=== PATIENT | male | born 1975 | race Caucasian/White ===

== ENCOUNTER 2020-02-14 12:22 | Emergency (ER) | payer BC, SELFPAY ==
[2020-02-14 12:29] VITALS: BP 127/88; PULSE 76; RESP 20; TEMP 36.3; O2SAT 100
--- NOTE | 2020-02-14 12:32 | ED.SKABFB ---
HPI - Skin/Abscess/Foreign Bdy General Chief complaint: Skin/Abscess/Foreign Body Stated complaint: Infected finger Time Seen by Provider: 02/14/20 12:37 Source: patient Mode of arrival: ambulatory Limitations: no limitations History of Present Illness HPI narrative: Fidencio Prakash is a 44 yo male with a PMH of GERD, depression, who comes to [facility] with a cellulitic-looking lesion to that started on Tuesday the third finger . Currently warm to touch; in general hands are eczemic Related Data Home Medications Medication Instructions Recorded Confirmed famotidine [Pepcid] 20 mg PO DAILY 02/14/20 02/14/20 levomilnacipran [Fetzima] 40 mg PO DAILY 02/14/20 02/14/20 loratadine [Claritin] 10 mg PO DAILY 02/14/20 02/14/20 Allergies Allergy/AdvReac Type Severity Reaction Status Date / Time erythromycin base Allergy Unknown unknown Verified 02/14/20 12:38 Review of Systems Review of Systems: Narrative: CONSTITUTIONAL: Denies fever, chills, sweats. EYES: Denies visual changes, redness, discharge. ENT: Denies rhinorrhea, congestion, sore throat, otalgia. CARDIOVASCULAR: Denies chest pain, palpitations, edema. RESPIRATORY: Denies dyspnea, wheezing, cough GASTROINTESTINAL: Denies abdominal pain, nausea, vomiting, diarrhea. GENITOURINARY: Denies dysuria, hematuria, abnormal discharge SKIN: Denies rash or itching. Reddened warm area to the third finger right hand NEUROLOGIC: Denies numbness, or focal weakness. PSYCHIATRIC: Denies anxiety or depression. Does not feel that it did have a fever PMFSH Past Medical History Medical History Anxiety disorder, unspecified (~2009) Cold virus Dysthymic disorder (~2009) Encounter for other general examination Encounter for screening for lipoid disorders Eustachian tube dysfunction Family history of colon cancer in father Gastroenteritis Generalized anxiety disorder Muscle strain Muscle strain of upper back Nicotine dependence with current use SBD (seborrheic dermatitis) Screening for prostate cancer Seasonal allergies Slow transit constipation Family History Family History Grandparent Malignant neoplasm of prostate Diabetes mellitus Mother Family history of diabetes mellitus in first degree relative Diabetes mellitus Father Carcinoma of colon Social History Social History Social History: Pt is a current smoker with about one pack a day. States he started when he was 22. 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 There is no relevant family history pertinent to the presenting complaint. Exam Narrative: Exam Narrative: GENERAL: This is a well-nourished, well-developed patient, in mild distress. HEAD: normocephalic, atraumatic. EYES: PERRL. Sclera clear/white. Vision is grossly intact. EARS: External ears normal, auditory canals clear and without drainage, TMs normal without perforation. Hearing grossly intact. NOSE: External nose normal without nasal discharge, nares without redness, no rhinorrhea. THROAT: Mucous membranes moist, posterior pharynx NECK: Neck supple, non-tender CARDIOVASCULAR: Regular rate and rhythm without murmurs, gallops, or rubs. RESPIRATORY: Clear to auscultation. Breath sounds equal bilaterally. No wheezes, rales, or rhonchi. GASTROINTESTINAL: Abdomen soft, non-tender, SKIN: warm, intact with no suspicious lesions or rash, good te
== END 2020-02-14 12:58 | disposition home or self-care (01) ==
PROVIDERS: Emergency Provider Nurse Practitioner
DX: L03.011 Cellulitis of right finger (principal); K21.9 Gastro-esophageal reflux disease without esophagitis; F17.210 Nicotine dependence, cigarettes, uncomplicated
CPT/HCPCS: 99213; G0463

== ENCOUNTER 2021-04-09 10:00 | Outpatient (CLI) | payer BC, SELFPAY ==
--- NOTE | 2021-04-09 10:04 | EST_ITS ---
Patient Info Name: Fidencio Prakash Age: 45 years : 1975 Gender: Male Ht: 76 in Wt: 215 lbs BSA: 2.29 m2 HR: 65 bpm BP: 107 / 77 mmHg Heart Rhythm: Sinus Rhythm Exam Date: 04/09/2021 10:11 AM Exam Location: [facility] Stress Patient Status: Outpatient Admit Date: 04/09/2021 Staff Ordering Physician: Isis Machado NP Attending Provider: Isis Machado NP Exercise Technologist: Ana Laura Vega CT Exercise Physician: Faraz Regalado DO Exam Type: CA stress test treadmill Study Info Indications R00.2 - Palpitations R06.02 - Shortness of breath An exercise stress test was performed. Summary 1. 1. Negative Julius exercise stress test for ischemic ST changes by ECG criteria. 2. 2. Good functional capacity, achieving 13 METs of workload. 3. 3. Appropriate HR response to exercise. 4. 4. Appropriate HR recovery at 1 minute post exercise. 5. 5. No imaging with stress testing. 6. 6. Patient informed of the above results. Protocol: Julius Stress ECG Details Stage: REST Duration (min): 8 min : 9 sec Speed (mph): 0.0 Grade (%): 0 HR (bpm): 64 SBP (mmHg): 107 DBP (mmHg): 77 METS: --- Stage: REST Duration (min): 12 min : 46 sec Speed (mph): 0.0 Grade (%): 0 HR (bpm): 71 SBP (mmHg): 107 DBP (mmHg): 77 METS: --- Stage: STAGE 1 Duration (min): 1 min : 0 sec Speed (mph): 1.7 Grade (%): 10 HR (bpm): 88 SBP (mmHg): 107 DBP (mmHg): 77 METS: --- Stage: STAGE 1 Duration (min): 2 min : 0 sec Speed (mph): 1.7 Grade (%): 10 HR (bpm): 86 SBP (mmHg): 107 DBP (mmHg): 77 METS: --- Stage: STAGE 1 Duration (min): 3 min : 0 sec Speed (mph): 1.7 Grade (%): 10 HR (bpm): 84 SBP (mmHg): 139 DBP (mmHg): 79 METS: --- Stage: STAGE 2 Duration (min): 1 min : 0 sec Speed (mph): 2.5 Grade (%): 12 HR (bpm): 95 SBP (mmHg): 139 DBP (mmHg): 79 METS: --- Stage: STAGE 2 Duration (min): 2 min : 0 sec Speed (mph): 2.5 Grade (%): 12 HR (bpm): 95 SBP (mmHg): 137 DBP (mmHg): 77 METS: --- Stage: STAGE 2 Duration (min): 3 min : 0 sec Speed (mph): 2.5 Grade (%): 12 HR (bpm): 101 SBP (mmHg): 137 DBP (mmHg): 77 METS: --- Stage: STAGE 3 Duration (min): 1 min : 0 sec Speed (mph): 3.4 Grade (%): 14 HR (bpm): 108 SBP (mmHg): 144 DBP (mmHg): 61 METS: --- Stage: STAGE 3 Duration (min): 2 min : 0 sec Speed (mph): 3.4 Grade (%): 14 HR (bpm): 114 SBP (mmHg): 144 DBP (mmHg): 61 METS: --- Stage: STAGE 3 Duration (min): 3 min : 0 sec Speed (mph): 3.4 Grade (%): 14 HR (bpm): 116 SBP (mmHg): 148 DBP (mmHg): 65 METS: --- Stage: STAGE 4 Duration (min): 1 min : 0 sec Speed (mph): 4.2 Grade (%): 16 HR (bpm): 128 SBP (mmHg): 148 DBP (mmHg): 65 METS: ---
== END 2021-04-09 10:01 | disposition home or self-care (01) ==
PROVIDERS: PCP Family Medicine; Visit Provider Nurse Practitioner
DX: R00.2 Palpitations (principal); R06.02 Shortness of breath
CPT/HCPCS: 93017

== ENCOUNTER 2021-10-05 16:15 | Outpatient (CLI) | payer BC, SELFPAY ==
[2021-10-05 19:05] LABS: Basophils Percent Auto 0.6 % (0.2-1.2); Eosinophils Absolute Auto 0.1 K/mm3 (0-0.3); Eosinophils Percent Auto 1.9 % (0-4.4); Hematocrit 37.7 % (42.0-52.0); Hemoglobin 12.4 g/dL (14.0-18.0); Immature Granulocyte Absolute 0.01 K/mm3 (0.00-0.031); Immature Granulocyte Percent A 0.2 % (0-0.5); Mean Corpuscular HGB Conc 32.9 g/dl (32-36); Mean Corpuscular Volume 94.3 fl (80-100); Mean Platelet Volume 9.8 fl (7.4-10.4); Monocytes Absolute Auto 0.4 K/mm3 (0.1-0.6); Monocytes Percent Auto 6.5 % (2.6-8.5); Neutrophils Absolute Auto 3.5 K/mm3 (1.3-6.7); Neutrophils Percent Auto 56.8 % (45.5-73.1); Platelet Count Result 170 k/mm3 (150-375); Red Cell Distribution Width 12.4 % (11.5-14.5); White Blood Count 6.2 K/mm3 (4.5-10.0)
[2021-10-05 19:14] LABS: Alanine Aminotransferase 35 U/L (6-50); Albumin Level 4.3 g/dL (3.5-5.1); Alkaline Phosphatase 69 U/L (38-126); Anion Gap 6 mmol/L (8-16); Aspartate Amino Transferase 44 U/L (17-59); Bilirubin,Total 0.6 mg/dL (0.2-1.3); Blood Urea Nitrogen 37 mg/dL (9-20); Calcium 9.1 mg/dL (8.4-10.2); Carbon Dioxide 28 mmol/L (22-30); Chloride 104 mmol/L (98-107); Cholesterol 238 mg/dL (0-200); Estimated Glomerular Filt Rate > 60; Glucose 90 mg/dL (65-110); HDL Direct 75 mg/dL; Potassium 4.5 mmol/L (3.4-5.0); Sodium 138 mmol/L (137-145); Triglycerides 84 mg/dL (<150)
[2021-10-05 19:26] LABS: LDL Cholesterol Direct 110 mg/dL
[2021-10-05 22:30] LABS: Vitamin D 25 Hydroxy 29.3 ng/mL
[2021-10-06 18:02] LABS: Iron 80 ug/dL (49-181); Percent Iron Saturation 20 % (20-50)
[2021-10-09 23:17] LABS: Testosterone Total 158 ng/dL (250-1100)
== END 2021-10-05 16:16 | disposition home or self-care (01) ==
LOC: ANHGOSHLAB 16:17
PROVIDERS: PCP Family Medicine; Visit Provider Nurse Practitioner
DX: E55.9 Vitamin D deficiency, unspecified (principal); R53.83 Other fatigue; E78.5 Hyperlipidemia, unspecified
CPT/HCPCS: 36415; 80053; 80061; 82306; 82728; 83540; 83550; 84403; 84443; 85025

== ENCOUNTER 2021-10-29 13:51 | Outpatient (CLI) | payer BC, SELFPAY ==
--- NOTE | 2021-10-30 12:25 | WPDPFTINT ---
PFT Procedure Performed PFT Procedure Performed Spirometry with Pre/Post Bronchodilator Plethysmography (Lung Vol) Diffusing Cap (DLCO) Flow Vol Loop PFT Interpretation Lung volumes were measured with the body plethysmography method. Lung volumes are unremarkable. Spirometry showed normal expiratory flow rates and a normal FEV1 to FVC ratio of 81%. Following administration of a bronchodilator there was no significant increase in expiratory flow rates. Lung diffusion capacity is normal at 120% predicted. The flow volume loop showed plateau of the expiratory flows suggestive of intrathoracic airway obstruction. Clinical correlation advised. Impression: Spirometry, lung volumes, and lung diffusion capacity all within the normal range. Flow volume loop suggestive of intrathoracic airway obstruction.
== END 2021-10-29 13:52 | disposition home or self-care (01) ==
LOC: ANHPFT 13:55
PROVIDERS: PCP Family Medicine; Visit Provider Nurse Practitioner
DX: R06.02 Shortness of breath (principal)
CPT/HCPCS: 94060; 94726; 94729

== ENCOUNTER 2022-08-12 10:19 | Outpatient (CLI) | payer OTHER, BC, SELFPAY ==
[2022-08-12 19:21] LABS: Basophils Percent Auto 0.6 % (0.2-1.2); Eosinophils Absolute Auto 0.1 K/mm3 (0-0.3); Eosinophils Percent Auto 2.3 % (0-4.4); Hematocrit 44.2 % (42.0-52.0); Hemoglobin 14.9 g/dL (14.0-18.0); Immature Granulocyte Absolute 0.01 K/mm3 (0.00-0.031); Immature Granulocyte Percent A 0.2 % (0-0.5); Lymphocytes Absolute Auto 1.42 K/mm3 (0.9-3.2); Lymphocytes Percent Auto 27.4 % (18.3-44.2); Mean Corpuscular HGB Conc 33.7 g/dl (32-36); Mean Corpuscular Volume 91.9 fl (80-100); Mean Platelet Volume 9.9 fl (7.4-10.4); Monocytes Absolute Auto 0.4 K/mm3 (0.1-0.6); Monocytes Percent Auto 7.3 % (2.6-8.5); Neutrophils Absolute Auto 3.2 K/mm3 (1.3-6.7); Neutrophils Percent Auto 62.2 % (45.5-73.1); Platelet Count Result 174 k/mm3 (150-375); Red Blood Count 4.81 M/mm3 (4.6-6.20); White Blood Count 5.2 K/mm3 (4.5-10.0)
[2022-08-12 19:43] LABS: Alanine Aminotransferase 42 U/L (6-50); Albumin Level 4.4 g/dL (3.5-5.1); Alkaline Phosphatase 63 U/L (38-126); Anion Gap 6 mmol/L (8-16); Aspartate Amino Transferase 40 U/L (17-59); Blood Urea Nitrogen 32 mg/dL (9-20); Calcium 9.3 mg/dL (8.4-10.2); Carbon Dioxide 28 mmol/L (22-30); Chloride 104 mmol/L (98-107); Cholesterol 260 mg/dL (0-200); Estimated Glomerular Filt Rate 60; Glucose 102 mg/dL (65-110); HDL Direct 71 mg/dL; Potassium 4.4 mmol/L (3.4-5.0); Sodium 138 mmol/L (137-145); Triglycerides 78 mg/dL (<150)
[2022-08-12 19:54] LABS: LDL Cholesterol Direct 154 mg/dL
[2022-08-12 19:59] LABS: Vitamin D 25 Hydroxy 25.8 ng/mL
[2022-08-12 20:14] LABS: Prostate Specific Antigen 1.9 ng/mL (< OR = 4.0)
[2022-08-19 12:16] LABS: Testosterone Free 83.7 pg/mL (35.0-155.0); Testosterone Total 649 ng/dL (250-1100)
[2022-08-24 16:32] LABS: Estrogen 101.9 pg/mL (60-190)
== END 2022-08-12 10:20 | disposition home or self-care (01) ==
LOC: ANHGOSHLAB 10:21
PROVIDERS: PCP Family Medicine; Visit Provider Nurse Practitioner Family
DX: E29.1 Testicular hypofunction (principal); I10 Essential (primary) hypertension; Z13.220 Encounter for screening for lipoid disorders; Z12.5 Encounter for screening for malignant neoplasm of prostate; Z13.29 Encounter for screening for other suspected endocrine disorder; Z13.21 Encounter for screening for nutritional disorder
CPT/HCPCS: 36415; 80053; 80061; 82306; 82672; 84153; 84402; 84403; 84443; 85025

== ENCOUNTER → 2022-08-12 10:30 | Outpatient (CLI) | payer OTHER, BC, SELFPAY ==
--- NOTE | ~2022-08-12 | XR_ITS ---
Clinical Indication: Shortness of breath PA and lateral views of the chest: Comparison: 07/17/2018 Findings: The lungs are clear, without evidence of focal consolidation or pleural effusion. Cardiome diastinal silhouette is within normal limits. Bones and soft tissues are unremarkable. Impression: Clear lungs. Reviewed, dictated and finalized at location . Impression: Clear lungs.
== END ==
PROVIDERS: PCP Family Medicine; Visit Provider Nurse Practitioner Family
DX: Z00.00 Encounter for general adult medical examination without abnormal findings (principal); E29.1 Testicular hypofunction; R06.02 Shortness of breath
CPT/HCPCS: 71046

== ENCOUNTER 2023-02-03 05:57 | Day surgery (SDC) | payer OTHER, BC, SELFPAY ==
[2023-01-19 08:51] VITALS: BMI 26.8
[2023-02-03] MEDS: LACTATED RINGERS 1,000 ML 150 ML IV CONT (06:35)
--- NOTE | 2023-02-03 07:23 | WPDANESEPPF ---
Anes - Initial Pre Proc Eval Procedure: Operation Date: 02/03/23 07:30 Proposed Procedures p Colonoscopy - Lake Rodriguez MD Date/Time: 02/03/23 07:23 Surgeon: Lake Rodriguez MD Pre Op Diagnosis: Family History of Colon Cancer Patient Data Age: 47 Gender: M Height: 1.93 m Weight: 102.8 kg Allergies Allergy/AdvReac Type Severity Reaction Status Date / Time erythromycin base Allergy Unknown unknown Verified 02/03/23 06:25 Home Medications Medication Instructions Recorded Confirmed Type needle (disp) 23 gauge 23 gauge x #100 ea 10/21/21 02/03/23 Rx 1 (BD Integra Needle) triamcinolone acetonide 0.1 % 1 applic topical BID #30 grams 08/12/22 02/03/23 Rx topical ointment atorvastatin 20 mg tablet (Lipitor) 20 mg PO QHS #90 tabs 08/18/22 02/03/23 Rx cholecalciferol (vitamin D3) 1,250 1,250 mcg PO WEEKLY #12 tabs 08/18/22 02/03/23 Rx mcg (50,000 unit) tablet anastrozole 1 mg tablet 1 mg PO WEEKLY #7 tabs 11/11/22 02/03/23 Rx clomiphene citrate 50 mg tablet 25 mg PO .COMPLEX 4 weeks #8 tabs 11/11/22 02/03/23 Rx testosterone cypionate 200 mg/mL 140 mg (0.7 mL) IM WEEKLY #1 mL 11/11/22 02/03/23 Rx intramuscular oil Patient hx anesthesia problems: none Family hx anesthesia problems: none Results Review: All pre-operative results and documents have been reviewed as part of the pre-operative evaluation. [facility] Past Medical History Medical History Anxiety disorder, unspecified (~2009) Dermatitis Family history of colon cancer in father GERD (gastroesophageal reflux disease) Hyperlipidemia Nicotine dependence with current use Seasonal allergies Family History Family History Grandparent Malignant neoplasm of prostate Diabetes mellitus Mother Family history of diabetes mellitus in first degree relative Diabetes mellitus Father Carcinoma of colon Other Family history of colon cancer in father Social History Social History Social History: Pt is a current smoker with about one pack a day. States he started when he was 22. 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 Gender identity (if verbalized by the patient): Male Sexual Orientation (if Verbalized by the Patient): Straight or Heterosexual Spiritual care concerns: No Agree to blood products: Yes Anes - Eval Final PreProcedure Day of Procedure 02/03/23 07:23 Patient weight: overweight Heart: regular rate and rhythm Lungs: decreased breath sounds Airway: Mallampati scale class II Neurological: alert and oriented Last oral intake: >/= 8 hours ASA classification: III Emergent: no Anesthetic plan: proceed Anesthesia type and monitoring: general GIVS and standard monitoring Results Review: All pre-operative results and documents have been reviewed as part of the pre-operative evaluation. Informed Consent: The patient's anesthetic plan and its attendant risks and benefits were discussed with the patient/family/POA. Questions were solicited and answers provided to the satisfaction of the patient/family/POA.
[2023-02-03 07:26] VITALS: BP 119/75; PULSE 79; RESP 20; TEMP 36.7; O2SAT 100
--- NOTE | 2023-02-03 07:26 | PM.HPGS ---
History of Present Illness History of Present Illness Consent: Risks, benefits, and alternatives have been discussed and questions answered. Patient agrees to proceed with procedure. Chief complaint: Family History of Colon Cancer Narrative: Fidencio Prakash is a 47 year old male here for first colonoscopy, father had colon cancer Review of Systems Constitutional: Constitutional: Denies headache(s) and Denies weakness Eyes: Eyes: Denies blurry vision ENT: Reports Normal hearing present, Denies headache(s) and Denies neck pain Cardiovascular: Cardiovascular: Denies chest pain and Denies dyspnea Respiratory: Respiratory: Denies dyspnea Gastrointestinal: Gastrointestinal: Reports no additional gastrointestinal complaints Genitourinary: Genitourinary: Denies dysuria Musculoskeletal: Musculoskeletal: Denies neck pain Integumentary/Breasts: Skin/Breast: Denies dry skin Neurologic: Reports Normal hearing present, Denies headache(s) and Denies weakness Psychiatric: Psychiatric: Denies anxiety Endocrine: Endocrine: Denies change in body appearance Hematologic/Lymphatic: Hematologic/Lymphatic: Denies easy bleeding Allergic/Immunologic: Allergic/Immunologic: Denies urticaria PMFSH Past Medical History Medical History Anxiety disorder, unspecified (~2009) Dermatitis Family history of colon cancer in father GERD (gastroesophageal reflux disease) Hyperlipidemia Nicotine dependence with current use Seasonal allergies Family History Family History Grandparent Malignant neoplasm of prostate Diabetes mellitus Mother Family history of diabetes mellitus in first degree relative Diabetes mellitus Father Carcinoma of colon Other Family history of colon cancer in father Social History Social History Social History: Pt is a current smoker with about one pack a day. States he started when he was 22. 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 Gender identity (if verbalized by the patient): Male Sexual Orientation (if Verbalized by the Patient): Straight or Heterosexual Spiritual care concerns: No Agree to blood products: Yes Meds Home Medications and Allergies Home Medications Medication Instructions Recorded Confirmed Type needle (disp) 23 gauge 23 gauge x #100 ea 10/21/21 02/03/23 Rx 1 (BD Integra Needle) triamcinolone acetonide 0.1 % 1 applic topical BID #30 grams 08/12/22 02/03/23 Rx topical ointment atorvastatin 20 mg tablet (Lipitor) 20 mg PO QHS #90 tabs 08/18/22 02/03/23 Rx cholecalciferol (vitamin D3) 1,250 1,250 mcg PO WEEKLY #12 tabs 08/18/22 02/03/23 Rx mcg (50,000 unit) tablet anastrozole 1 mg tablet 1 mg PO WEEKLY #7 tabs 11/11/22 02/03/23 Rx clomiphene citrate 50 mg tablet 25 mg PO .COMPLEX 4 weeks #8 tabs 11/11/22 02/03/23 Rx testosterone cypionate 200 mg/mL 140 mg (0.7 mL) IM WEEKLY #1 mL 11/11/22 02/03/23 Rx intramuscular oil Allergies Allergy/AdvReac Type Severity Reaction Status Date / Time erythromycin base Allergy Unknown unknown Verified 02/03/23 06:25 Exam Const: General: comfortable and no acute distress HENMT: Face/Nose/Sinus: Normal nares present Eyes: General: appearance normal, both eyes and all related structures Neck: Neck: no JVD Resp:
[2023-02-03 07:51] VITALS: BP 94/67; PULSE 68; RESP 14; O2SAT 96
[2023-02-03 08:01] VITALS: BP 102/73; PULSE 62; RESP 16; O2SAT 97
[2023-02-03 08:11] VITALS: BP 103/69; PULSE 62; RESP 16; O2SAT 98
--- NOTE | 2023-02-03 08:19 | WPDANESPN ---
Anes - Prog Note Post-Op Date/Time: 02/03/23 08:19 Cardiovascular status: normal Respiratory status: normal Airway patency: baseline Mental status: baseline Post-Op hydration status: normal Vital Signs: Last Vital Signs Temp 36.7 C 02/03/23 07:26 Pulse 62 02/03/23 08:01 Resp 16 02/03/23 08:01 BP 102/73 02/03/23 08:01 Pulse Ox 97 02/03/23 08:01 O2 Del Method Room Air 02/03/23 08:01 Pain Score (VAS): 0 I/O: Intake & Output 02/02/23 02/03/23 02/03/23 23:59 07:59 15:59 Intake Total 0 Balance 0 Patient Feedback: Patient satisfied with anesthetic care.
== END 2023-02-03 08:30 | disposition home or self-care (01) ==
PROVIDERS: PCP Family Medicine; Visit Provider Internal Medicine Gastroenterology
PROC: 0DJD8ZZ Inspection of Lower Intestinal Tract, Via Natural or Artificial Opening Endoscopic (ICD-10-PCS; CPT 45378; principal; 2023-02-03 07:30)
DX: Z80.0 Family history of malignant neoplasm of digestive organs (principal); D12.3 Benign neoplasm of transverse colon; D12.4 Benign neoplasm of descending colon; D12.5 Benign neoplasm of sigmoid colon; K57.30 Diverticulosis of large intestine without perforation or abscess without bleeding
CPT/HCPCS: 45385

== ENCOUNTER 2023-02-03 08:45 | Outpatient (NON) | payer OTHER, BC, SELFPAY | END 2023-02-03 08:46 | disposition home or self-care (01) | PROVIDERS: PCP Family Medicine; Visit Provider Internal Medicine Gastroenterology | DX: D12.3 Benign neoplasm of transverse colon (principal); D12.4 Benign neoplasm of descending colon; D12.5 Benign neoplasm of sigmoid colon; Z80.0 Family history of malignant neoplasm of digestive organs | CPT/HCPCS: 88305 ==

== ENCOUNTER 2023-10-20 08:04 | Outpatient (CLI) | payer OTHER, SELFPAY ==
[2023-10-20 19:36] LABS: Alanine Aminotransferase 34 U/L (6-50); Albumin Level 4.4 g/dL (3.5-5.1); Alkaline Phosphatase 62 U/L (38-126); Anion Gap 5 mmol/L (4-12); Aspartate Amino Transferase 42 U/L (17-59); Bilirubin,Total 0.8 mg/dL (0.2-1.3); Blood Urea Nitrogen 22 mg/dL (9-20); Calcium 9.2 mg/dL (8.4-10.2); Carbon Dioxide 32 mmol/L (22-30); Chloride 100 mmol/L (98-107); Cholesterol 254 mg/dL (0-200); Estimated Glomerular Filt Rate > 60; Glucose 86 mg/dL (65-110); HDL Direct 68 mg/dL; Sodium 137 mmol/L (137-145); Triglycerides 67 mg/dL (<150)
[2023-10-20 19:38] LABS: Basophils Percent Auto 0.7 % (0.2-1.2); Eosinophils Absolute Auto 0.1 K/mm3 (0-0.3); Eosinophils Percent Auto 2.1 % (0-4.4); Hematocrit 43.4 % (42.0-52.0); Hemoglobin 13.9 g/dL (14.0-18.0); Immature Granulocyte Absolute 0.01 K/mm3 (0.00-0.031); Immature Granulocyte Percent A 0.2 % (0-0.5); Lymphocytes Absolute Auto 1.34 K/mm3 (0.9-3.2); Lymphocytes Percent Auto 31.3 % (18.3-44.2); Mean Corpuscular Hemoglobin 31.1 pg (26-34); Mean Corpuscular Volume 97.1 fl (80-100); Mean Platelet Volume 10.1 fl (7.4-10.4); Monocytes Absolute Auto 0.4 K/mm3 (0.1-0.6); Monocytes Percent Auto 8.6 % (2.6-8.5); Neutrophils Absolute Auto 2.4 K/mm3 (1.3-6.7); Neutrophils Percent Auto 57.1 % (45.5-73.1); Platelet Count Result 162 k/mm3 (150-375); Red Blood Count 4.47 M/mm3 (4.6-6.20); Red Cell Distribution Width 12.1 % (11.5-14.5); White Blood Count 4.3 K/mm3 (4.5-10.0)
[2023-10-20 19:47] LABS: LDL Cholesterol Direct 140 mg/dL
[2023-10-20 19:58] LABS: Prostate Specific Antigen 2.3 ng/mL (< OR = 4.0)
[2023-10-25 13:03] LABS: Testosterone Free 107.9 pg/mL (35.0-155.0); Testosterone Total 1055 ng/dL (250-1100)
== END 2023-10-20 08:05 | disposition home or self-care (01) ==
LOC: ANHGOSHLAB 08:05
PROVIDERS: PCP Family Medicine; Visit Provider Nurse Practitioner Family
DX: Z00.00 Encounter for general adult medical examination without abnormal findings (principal); E53.8 Deficiency of other specified B group vitamins; E29.1 Testicular hypofunction; K21.9 Gastro-esophageal reflux disease without esophagitis; R06.02 Shortness of breath; Z13.29 Encounter for screening for other suspected endocrine disorder; R73.03 Prediabetes; Z12.5 Encounter for screening for malignant neoplasm of prostate
CPT/HCPCS: 36415; 80053; 80061; 82607; 83036; 84153; 84402; 84403; 84443; 85025; G0103

== ENCOUNTER 2024-08-23 07:57 | Outpatient (CLI) | payer BC, SELFPAY ==
[2024-08-23 13:04] LABS: Basophils Percent Auto 0.8 % (0.2-1.2); Eosinophils Absolute Auto 0.1 K/mm3 (0-0.3); Eosinophils Percent Auto 1.8 % (0-4.4); Hematocrit 40.6 % (42.0-52.0); Hemoglobin 13.3 g/dL (14.0-18.0); Immature Granulocyte Absolute 0.01 K/mm3 (0.00-0.031); Immature Granulocyte Percent A 0.3 % (0-0.5); Lymphocytes Absolute Auto 1.37 K/mm3 (0.9-3.2); Lymphocytes Percent Auto 34.3 % (18.3-44.2); Mean Corpuscular HGB Conc 32.8 g/dl (32-36); Mean Corpuscular Hemoglobin 30.8 pg (26-34); Monocytes Absolute Auto 0.3 K/mm3 (0.1-0.6); Monocytes Percent Auto 8.5 % (2.6-8.5); Neutrophils Absolute Auto 2.2 K/mm3 (1.3-6.7); Neutrophils Percent Auto 54.3 % (45.5-73.1); Platelet Count Result 148 k/mm3 (150-375); Red Blood Count 4.32 M/mm3 (4.6-6.20)
[2024-08-23 13:18] LABS: Alanine Aminotransferase 45 U/L (6-50); Albumin Level 4.5 g/dL (3.5-5.1); Alkaline Phosphatase 67 U/L (38-126); Anion Gap 6 mmol/L (4-12); Aspartate Amino Transferase 55 U/L (17-59); Bilirubin,Total 0.9 mg/dL (0.2-1.3); Blood Urea Nitrogen 18 mg/dL (9-20); Calcium 9.9 mg/dL (8.4-10.2); Carbon Dioxide 27 mmol/L (22-30); Chloride 105 mmol/L (98-107); Cholesterol 300 mg/dL (0-200); Estimated Glomerular Filt Rate > 60; Glucose 93 mg/dL (65-110); HDL Direct 84 mg/dL; Potassium 4.4 mmol/L (3.4-5.0); Sodium 138 mmol/L (137-145); Total Protein 7.4 g/dL (6.3-8.2); Triglycerides 79 mg/dL (<150)
[2024-08-23 13:18] LABS: CRP < 0.5 mg/dL (<1.0)
[2024-08-23 13:39] LABS: Erythrocyte Sedimentation Rate 13 mm/hr (0-20)
[2024-08-23 13:41] LABS: LDL Cholesterol Direct 153 mg/dL
[2024-08-23 13:42] LABS: Rheumatoid Factor < 12.0 IU/ML (<12)
[2024-08-23 14:31] LABS: Vitamin D 25 Hydroxy 26.4 ng/mL
[2024-08-23 14:44] LABS: Hemoglobin A1C 5.6 % (<5.7)
[2024-08-27 16:28] LABS: Anti Cyclic Citrullinated Pept <16 UNITS
[2024-08-28 18:29] LABS: Testosterone Free 179.9 pg/mL (35.0-155.0); Testosterone Total 1547 ng/dL (250-1100)
== END 2024-08-23 07:58 | disposition home or self-care (01) ==
PROVIDERS: PCP Family Medicine; Visit Provider Family Medicine
DX: E29.1 Testicular hypofunction (principal); R73.03 Prediabetes; E55.9 Vitamin D deficiency, unspecified; M25.50 Pain in unspecified joint; R00.2 Palpitations
CPT/HCPCS: 36415; 80053; 80061; 82306; 83036; 84402; 84403; 85025; 85652; 86038; 86039; 86140; 86200; 86430

== ENCOUNTER 2024-12-13 10:46 | Outpatient (CLI) | payer BC, SELFPAY ==
[2024-12-13 17:51] LABS: Prostate Specific Antigen 1.6 ng/mL (< OR = 4.0)
[2024-12-18 23:07] LABS: Free Testosterone (Direct) 1.4 pg/mL (6.8-21.5)
== END 2024-12-13 10:47 | disposition home or self-care (01) ==
LOC: ANHGOSHLAB 10:47
PROVIDERS: PCP Family Medicine; Visit Provider Family Medicine
DX: Z51.81 Encounter for therapeutic drug level monitoring (principal); Z12.5 Encounter for screening for malignant neoplasm of prostate; Z79.890 Hormone replacement therapy; E29.1 Testicular hypofunction
CPT/HCPCS: 36415; 84153; 84402; 84403; G0103